=== PATIENT | male | born 1965 | race Caucasian/White ===

== ENCOUNTER 2021-10-15 23:43 | Inpatient (IN) | payer OTHER ==
[~2021-10-15] VITALS: Ht 165.1 cm; Wt 82.3 kg
[2021-10-16 00:32] LABS: BASO % 0.4 % (0.0-1.0); EOS # 0.3 10*3/uL (0.0-0.4); EOS % 4.1 % (1.0-4.0); HEMATOCRIT 32.7 % (42.0-52.0); LYMPH # 1.7 10*3/uL (1.3-4.4); LYMPH % 20.6 % (27.0-41.0); MEAN CELL VOLUME 95.3 fl (80.0-94.0); MEAN CORPUSCULAR HGB 34.1 pg (27.0-31.0); MEAN CORPUSCULAR HGB CONC 35.8 g/dl (33.0-37.0); MEAN PLATELET VOLUME 9.5 fl (9.6-12.3); MONO # 1.2 10*3/uL (0.1-1.0); MONO % 14.4 % (3.0-9.0); NEUT % 60.1 % (47.0-73.0); PLATELET COUNT AUTOMATED 283 10*3/uL (130-400); RED BLOOD COUNT 3.43 10*6/uL (4.50-5.90); RED CELL DISTRI WIDTH 13.3 % (0-14.5); WHITE BLOOD COUNT 8.3 10*3/uL (4.8-10.8)
[2021-10-16 00:45] VITALS: BP 133/85
[2021-10-16 00:47] LABS: ALBUMIN 2.7 gm/dl (3.1-4.5); ALKALINE PHOSPHATASE 73 U/L (45-117); BUN 10 mg/dl (7-24); CHLORIDE 98 mmol/L (98-107); CREATININE 1.07 mg/dL (0.70-1.30); SGOT/AST 51 IU/L (3-35); SGPT/ALT 41 U/L (12-78); SODIUM 136 mmol/L (136-145); TOTAL PROTEIN 6.6 gm/dL (6.4-8.2)
[2021-10-16] MEDS ORDERED: ASPIRIN ADULT L81 M2 PO (02:28)
[2021-10-16] MEDS ORDERED: HYDR25T PO (02:29)
[2021-10-16] MEDS ORDERED: ZOLOFT25 MG PO (02:33)
[2021-10-16] MEDS ORDERED: PROPRANOLOL HCL10 MG PO (02:33)
[2021-10-16] MEDS ORDERED: ATARAX,VISTARIL10 MG PO (02:35)
[2021-10-16 02:39] LABS: URINE AMPHETAMINES < 1000 (1000ng/ml); URINE BARBITURATES < 200 (200ng/ml); URINE CANNABINOIDS (THC) < 50 (50ng/ml); URINE COCAINE < 300 (300ng/ml); URINE METHADONE < 300 (300ng/ml); URINE OPIATES < 300 (300ng/ml)
[2021-10-16 02:40] LABS: URINE PHENCYCLIDINE < 25 (25ng/ml)
[2021-10-16 02:47] LABS: URINE BENZODIAZEPINES < 200 (200ng/ml)
[2021-10-16 03:33] LABS: BUN 9 mg/dl (7-24); CHLORIDE 100 mmol/L (98-107); CREATININE 0.98 mg/dL (0.70-1.30); SODIUM 136 mmol/L (136-145)
[2021-10-16 03:36] LABS: POTASSIUM 1.9 mmol/L (3.5-5.1)
[2021-10-16 04:00] VITALS: BP 136/84
[2021-10-16 05:59] LABS: ALBUMIN 2.7 gm/dl (3.1-4.5); ALKALINE PHOSPHATASE 75 U/L (45-117); BUN 8 mg/dl (7-24); CHLORIDE 100 mmol/L (98-107); CHOLESTEROL 75 mg/dL (<200); CREATININE 1.01 mg/dL (0.70-1.30); FREE T4 1.21 ng/dl (0.76-1.46); LDL CHOLESTEROL 26 mg/dL (9-159); SGOT/AST 50 IU/L (3-35); SGPT/ALT 40 U/L (12-78); SODIUM 137 mmol/L (136-145); TOTAL PROTEIN 6.6 gm/dL (6.4-8.2); TRIGLYCERIDES 75 mg/dl (<150)
[2021-10-16 06:09] LABS: POTASSIUM 1.9 mmol/L (3.5-5.1)
[2021-10-16 06:15] VITALS: BP 119/74
[2021-10-16 06:21] LABS: BASO % 0.4 % (0.0-1.0); EOS # 0.3 10*3/uL (0.0-0.4); EOS % 4.5 % (1.0-4.0); HEMATOCRIT 32.9 % (42.0-52.0); LYMPH # 1.5 10*3/uL (1.3-4.4); LYMPH % 20.4 % (27.0-41.0); MEAN CELL VOLUME 94.8 fl (80.0-94.0); MEAN CORPUSCULAR HGB CONC 35.9 g/dl (33.0-37.0); MONO # 0.9 10*3/uL (0.1-1.0); MONO % 12.3 % (3.0-9.0); NEUT # 4.7 10*3/uL (2.3-7.9); NEUT % 62.1 % (47.0-73.0); PLATELET COUNT AUTOMATED 308 10*3/uL (130-400); RED BLOOD COUNT 3.47 10*6/uL (4.50-5.90); RED CELL DISTRI WIDTH 13.3 % (0-14.5); WHITE BLOOD COUNT 7.5 10*3/uL (4.8-10.8)
[2021-10-16 07:03] LABS: VITAMIN D, 25-HYDROXY 15.3 ng/mL (30-100)
[2021-10-16 07:41] VITALS: BP 117/67
[2021-10-16 08:43] LABS: ABG BASE EXCESS 5.3 mmol/L (-2.0-2.0); ARTERIAL BLOOD GAS PH 7.574 (7.35-7.45); ARTERIAL BLOOD GAS PO2 89.1 (80-90)
[2021-10-16 10:29] LABS: BILIRUBIN Negative (Negative); BLOOD Negative (Negative); CLARITY Clear (Clear); COLOR Yellow (Yellow); GLUCOSE Negative (Negative); KETONE Negative (Negative); LEUKO ESTERASE Negative (Negative); NITRITE Negative (Negative); SPECIFIC GRAVITY <= 1.005 (1.001-1.030)
[2021-10-16 13:00] LABS: ALBUMIN 2.5 gm/dl (3.1-4.5); ALKALINE PHOSPHATASE 69 U/L (45-117); BUN 7 mg/dl (7-24); CHLORIDE 102 mmol/L (98-107); CREATININE 1.02 mg/dL (0.70-1.30); POTASSIUM 2.6 mmol/L (3.5-5.1); SGOT/AST 43 IU/L (3-35); SGPT/ALT 37 U/L (12-78); SODIUM 139 mmol/L (136-145); TOTAL PROTEIN 6.4 gm/dL (6.4-8.2)
[2021-10-16 17:30] LABS: BUN 8 mg/dl (7-24); CHLORIDE 102 mmol/L (98-107); CREATININE 1.07 mg/dL (0.70-1.30); POTASSIUM 2.8 mmol/L (3.5-5.1); SODIUM 138 mmol/L (136-145)
[2021-10-16 19:13] VITALS: BP 124/72
[2021-10-16] MEDS ORDERED: DAPSONE25 M1 PO (19:45)
[2021-10-16 22:06] LABS: BUN 7 mg/dl (7-24); CHLORIDE 101 mmol/L (98-107); SODIUM 137 mmol/L (136-145)
[2021-10-17 02:57] VITALS: BP 134/77
[2021-10-17 03:06] VITALS: BP 136/84
[2021-10-17] MEDS ORDERED: CRESTOR10 M1 PO (04:55)
[2021-10-17] MEDS ORDERED: PROBIOTIC FORM1 EACH PO (04:57)
[2021-10-17 06:12] LABS: ALBUMIN 2.5 gm/dl (3.1-4.5); ALKALINE PHOSPHATASE 64 U/L (45-117); BUN 6 mg/dl (7-24); CHLORIDE 103 mmol/L (98-107); CREATININE 0.96 mg/dL (0.70-1.30); IRON 36 ug/dL (65-175); POTASSIUM 2.6 mmol/L (3.5-5.1); SGOT/AST 38 IU/L (3-35); SGPT/ALT 35 U/L (12-78); SODIUM 139 mmol/L (136-145); TOTAL IRON BINDING CAPACITY 301 ug/dl (250-450); TOTAL PROTEIN 6.2 gm/dL (6.4-8.2)
[2021-10-17 07:02] LABS: BASO % 0.5 % (0.0-1.0); EOS # 0.4 10*3/uL (0.0-0.4); EOS % 5.7 % (1.0-4.0); HEMATOCRIT 33.4 % (42.0-52.0); LYMPH % 26.8 % (27.0-41.0); MEAN CORPUSCULAR HGB 34.4 pg (27.0-31.0); MEAN CORPUSCULAR HGB CONC 34.7 g/dl (33.0-37.0); MONO # 0.9 10*3/uL (0.1-1.0); MONO % 11.4 % (3.0-9.0); NEUT # 4.2 10*3/uL (2.3-7.9); NEUT % 55.3 % (47.0-73.0); PLATELET COUNT AUTOMATED 301 10*3/uL (130-400); RED BLOOD COUNT 3.37 10*6/uL (4.50-5.90); RED CELL DISTRI WIDTH 13.8 % (0-14.5); WHITE BLOOD COUNT 7.6 10*3/uL (4.8-10.8)
[2021-10-17 07:08] LABS: MEAN CELL VOLUME 99.1 fl (80.0-94.0)
[2021-10-17 08:00] VITALS: BP 133/81
[2021-10-17 12:00] VITALS: BP 121/72
[2021-10-17 15:52] VITALS: BP 125/80
[2021-10-17 17:33] LABS: ALBUMIN 2.8 gm/dl (3.1-4.5); ALKALINE PHOSPHATASE 75 U/L (45-117); BUN 10 mg/dl (7-24); CHLORIDE 102 mmol/L (98-107); CREATININE 0.85 mg/dL (0.70-1.30); POTASSIUM 3.3 mmol/L (3.5-5.1); SGOT/AST 38 IU/L (3-35); SGPT/ALT 40 U/L (12-78); SODIUM 137 mmol/L (136-145); TOTAL PROTEIN 7.2 gm/dL (6.4-8.2)
[2021-10-17 20:00] VITALS: BP 134/76
[2021-10-18] VITALS: BP 133/83
[2021-10-18 06:26] LABS: BASO % 0.4 % (0.0-1.0); EOS # 0.5 10*3/uL (0.0-0.4); EOS % 7.3 % (1.0-4.0); HEMATOCRIT 34.8 % (42.0-52.0); LYMPH # 1.6 10*3/uL (1.3-4.4); MEAN CELL VOLUME 100.6 fl (80.0-94.0); MEAN CORPUSCULAR HGB 34.4 pg (27.0-31.0); MEAN CORPUSCULAR HGB CONC 34.2 g/dl (33.0-37.0); MEAN PLATELET VOLUME 9.7 fl (9.6-12.3); MONO # 0.6 10*3/uL (0.1-1.0); MONO % 8.6 % (3.0-9.0); NEUT # 4.2 10*3/uL (2.3-7.9); NEUT % 60.4 % (47.0-73.0); PLATELET COUNT AUTOMATED 299 10*3/uL (130-400); RED BLOOD COUNT 3.46 10*6/uL (4.50-5.90); RED CELL DISTRI WIDTH 13.7 % (0-14.5); WHITE BLOOD COUNT 6.9 10*3/uL (4.8-10.8)
[2021-10-18 06:43] LABS: CHLORIDE 108 mmol/L (98-107); POTASSIUM 3.7 mmol/L (3.5-5.1); SODIUM 138 mmol/L (136-145)
[2021-10-18 06:53] LABS: ALBUMIN 2.4 gm/dl (3.1-4.5); ALKALINE PHOSPHATASE 64 U/L (45-117); BUN 10 mg/dl (7-24); CREATININE 0.89 mg/dL (0.70-1.30); SGOT/AST 31 IU/L (3-35); SGPT/ALT 34 U/L (12-78); TOTAL PROTEIN 6.5 gm/dL (6.4-8.2)
[2021-10-18 08:00] VITALS: BP 135/78
[2021-10-18] MEDS ORDERED: VITAMIN D31250 MCG PO (11:46)
[2021-10-18 12:00] VITALS: BP 112/72
== END 2021-10-18 15:06 | disposition home or self-care (01) | DRG 640 ==
LOC: ED 23:43 → EDHOLD 10-16 02:01 → ED 10-16 02:01 → EDHOLD 10-16 02:13 → 4E 10-16 02:13 → EDHOLD 10-16 13:48 → 4E 10-17 01:47
PROVIDERS: Emergency Medicine; Hospitalist; Internal Medicine; Student in an Organized Health Care Education/Training Program; ADMIT Family Medicine; ATTEND Family Medicine
DX: E87.6 Hypokalemia (principal); E43 Unspecified severe protein-calorie malnutrition; E83.51 Hypocalcemia; E83.42 Hypomagnesemia; L13.0 Dermatitis herpetiformis; R73.9 Hyperglycemia, unspecified; I10 Essential (primary) hypertension; F41.9 Anxiety disorder, unspecified; F32.A Depression, unspecified; K21.9 Gastro-esophageal reflux disease without esophagitis; D53.9 Nutritional anemia, unspecified; R74.01 Elevation of levels of liver transaminase levels; Z68.30 Body mass index [BMI] 30.0-30.9, adult; Z91.11 Patient's noncompliance with dietary regimen; Z82.49 Family history of ischemic heart disease and other diseases of the circulatory system; Z83.3 Family history of diabetes mellitus; Z79.82 Long term (current) use of aspirin; Z79.899 Other long term (current) drug therapy

== ENCOUNTER → 2023-01-29 | Day surgery (SDC) | payer OTHER ==
[~2023-01-29] VITALS: Ht 170.1 cm; Wt 86.2 kg
[~2023-01-29] MED LIST: ASPIRIN ADULT L81 M2 PO; ATARAX,VISTARIL10 MG PO; CRESTOR10 M1 PO; DAPSONE25 M1 PO; HYDR25T PO; OMEPRAZOLE MAGN20 MG PO; PROBIOTIC FORM1 EACH PO; PROPRANOLOL HCL10 MG PO; PROPRANOLOL HCL20 M1 PO; SERTRALINE HYD100 MG PO; VITAMIN D31250 MCG PO; ZOLOFT25 MG PO
[2023-01-29 08:00] VITALS: BP 158/92
[2023-01-29 08:55] VITALS: BP 121/82
[2023-01-29 09:10] VITALS: BP 167/96
[2023-01-29 09:25] VITALS: BP 157/94
== END | disposition home or self-care (01) ==
LOC: SDC 01-25 11:00
PROVIDERS: ATTEND Surgery
DX: Z12.11 Encounter for screening for malignant neoplasm of colon (principal); Z86.010 Personal history of colon polyps; I10 Essential (primary) hypertension; Z86.73 Personal history of transient ischemic attack (TIA), and cerebral infarction without residual deficits; F41.9 Anxiety disorder, unspecified; K21.9 Gastro-esophageal reflux disease without esophagitis; F32.A Depression, unspecified; Z79.899 Other long term (current) drug therapy